=== PATIENT | female | born 1980 | race Caucasian/White ===

== ENCOUNTER 2016-10-07 13:30 | Emergency (ER) | payer BC ==
[2016-10-07 13:52] VITALS: BP 130/70
--- NOTE | 2016-10-07 14:24 | UC ---
Throat Pain/Nasal Crescencio HPI - HPI Summary HPI Summary: Sinus congestion for 3-4 days, no fever, mild sore throat and occaisional nausea from PND. - History of Current Complaint Chief Complaint: UCRespiratory Stated Complaint: SINUS ISSUE Time Seen by Provider: 10/07/16 13:53 Hx Obtained From: Patient Hx Last Menstrual Period: 09/21/16 ?: No Onset/Duration: Sudden Onset, Lasting Days Severity: Moderate Cough: Nonproductive Associated Signs & Symptoms: Positive: Dysphagia, Sinus Discomfort, Nasal Discharge - Epiglottits Risk Factors Epiglottis Risk Factors: Negative - Allergies/Home Medications Allergies/Adverse Reactions: Allergies Allergy/AdvReac Type Severity Reaction Status Date / Time Doxycycline Allergy Severe GI Upset Verified 10/07/16 13:44 Methylprednisolone Allergy Severe ITCHING, Verified 10/07/16 13:44 [From Medrol] FLUSHING Shellfish Allergy Allergy Severe Anaphylatic Verified 10/07/16 13:44 Shock Home Medications: Home Medications Ibuprofen TAB* [Motrin TAB* 600 MG] 600 mg PO Q6H PRN 10/07/16 [History Confirmed 10/07/16] PMH/Surg Hx/FS Hx/Imm Hx Previously Healthy: Yes Endocrine History Of: Denies: Diabetes Cardiovascular History Of: Denies: Hypertension, Pacemaker/ICD GI/ History Of: Denies: Renal Disease - Surgical History Surgical History: Yes Surgery Procedure, Year, and Place: LEEP PROCEDURE 2004. LAPROSCOPIC SURGERY 12/06/2015 FOR ENDOMETRIOSIS - Family History Known Family History: Negative: Cardiac Disease, Hypertension - Social History Alcohol Use: Rare Substance Use Type: None Smoking Status (MU): Never Smoked Tobacco - Immunization History Most Recent Influenza Vaccination: 2016 Most Recent Tetanus Shot: UTD Most Recent Pneumonia Vaccination: N/A Review of Systems Constitutional: Negative Skin: Negative Eyes: Negative ENT: Sore Throat, Ear Ache, Nasal Discharge Respiratory: Negative Cardiovascular: Negative Gastrointestinal: Negative Genitourinary: Negative Motor: Negative Neurovascular: Negative Musculoskeletal: Negative Neurological: Negative Psychological: Negative All Other Systems Reviewed And Are Negative: Yes Physical Exam Triage Information Reviewed: Yes Appearance: Well-Nourished, Ill-Appearing, Pain Distress Vital Signs: Initial Vital Signs Temp 97.2 F 10/07/16 13:46 Pulse 75 10/07/16 13:46 Resp 18 10/07/16 13:46 BP 130/70 04/04/17 13:46 Pulse Ox 99 10/07/16 13:46 Vital Signs Reviewed: Yes Eye Exam: Normal Eyes: Positive: Conjunctiva Clear ENT: Positive: Nasal congestion, Nasal drainage, TM bulging, Other: - bilateral inflammed turbids in nares Dental Exam: Normal Neck exam: Normal Neck: Positive: Supple, Nontender, No Lymphadenopathy Respiratory Exam: Normal Respiratory: Positive: Chest non-tender, Lungs clear, Normal breath sounds Cardiovascular Exam: Normal Cardiovascular: Positive: RRR, No Murmur, Pulses Normal Abdominal Exam: Normal Abdomen Description: Positive: Nontender, No Organomegaly, Soft Bowel Sounds: Positive: Present Musculoskeletal Exam: Normal Musculoskeletal: Positive: Strength Intact, ROM Intact, No Edema Neurological Exam: Normal Neurological: Positive: Alert, Fatigued Psychological Exam: Normal Skin Exam: Normal Throat Pain/Nasal Course/Dx - Course Course Of Treatment: History obrtained, exam performed, meds reviewed, educated on manual sinus drainage, sinus infection vs sinus congestion. symptomatic relief. patient has medrol allergy, advised to try flonase. - Differential Dx/Diagnosis Differential Diagnosis/HQI/PQRI: Influenza, Laryngitis, Otitis Media, Pharyngitis, Sinusitis, URI Provider Diagnoses: maxillary sinus pressure. pharyngitis Discharge - Discharge Plan Condition: Stable Disposition: HOME Patient Education Materials: Rhinosinusitis (ED) Additional Instructions: 1. continue with the NETI pot. 2. Increase fluid intake 3. Steam bath to open sinuses 4. Manual lymph drainage as we talked about. 5. Follow up if you develop a fever, or worsening symptoms.
== END 2016-10-07 14:27 | disposition home or self-care (01) ==
LOC: UCEAST 13:30
DX: R09.81 Nasal congestion (principal); J02.9 Acute pharyngitis, unspecified; Z88.1 Allergy status to other antibiotic agents
CPT/HCPCS: 87502; 99211; G0463

== ENCOUNTER 2017-06-04 16:07 | Emergency (ER) | payer SELFPAY ==
[2017-06-04 16:35] VITALS: BP 116/68
--- NOTE | 2017-06-04 16:45 | UC ---
Knee Pain HPI - HPI Summary HPI Summary: Slipped and fell at work 06/01 pain in right knee - History of Current Complaint Chief Complaint: UCLowerExtremity Stated Complaint: KNEE INJURY Time Seen by Provider: 06/04/17 16:27 Hx Obtained From: Patient Hx Last Menstrual Period: 05/20/17 ?: No Onset/Duration: Sudden Onset, Lasting Days - 3, Still Present Severity Initially: Moderate Severity Currently: Moderate Location Of Injury: right knee Character: Aching Aggravating Factor(s): Weight Bearing - with pain Alleviating Factor(s): Rest, Position Associated Signs And Symptoms: Positive: Swelling, Bruising Able to Bear Weight: Yes - Allergies/Home Medications Allergies/Adverse Reactions: Allergies Allergy/AdvReac Type Severity Reaction Status Date / Time Doxycycline Allergy Severe GI Upset Verified 06/04/17 16:35 Methylprednisolone Allergy Severe ITCHING, Verified 06/04/17 16:35 [From Medrol] FLUSHING Shellfish Allergy Allergy Severe Anaphylatic Verified 06/04/17 16:35 Shock PMH/Surg Hx/FS Hx/Imm Hx Previously Healthy: Yes - Surgical History Surgical History: Yes Surgery Procedure, Year, and Place: LEEP PROCEDURE 2004. LAPROSCOPIC SURGERY 12/06/2015 FOR ENDOMETRIOSIS - Family History Known Family History: Negative: Cardiac Disease, Hypertension - Social History Occupation: Employed Full-time Lives: With Family Alcohol Use: Occasionally Substance Use Type: None Smoking Status (MU): Never Smoked Tobacco - Immunization History Most Recent Influenza Vaccination: 2015 Most Recent Tetanus Shot: UTD Most Recent Pneumonia Vaccination: N/A Review of Systems Constitutional: Negative Skin: Negative Eyes: Negative ENT: Negative Respiratory: Negative Cardiovascular: Negative Gastrointestinal: Negative Genitourinary: Negative Motor: Negative Neurovascular: Negative Musculoskeletal: Arthralgia - right knee Neurological: Negative Psychological: Negative Is Patient Immunocompromised?: No All Other Systems Reviewed And Are Negative: Yes Physical Exam Triage Information Reviewed: Yes Appearance: Well-Appearing, No Pain Distress, Well-Nourished Vital Signs: Initial Vital Signs Temp 98.0 F 06/04/17 16:32 Pulse 75 06/04/17 16:32 Resp 18 06/04/17 16:32 BP 116/68 06/04/17 16:32 Pulse Ox 100 06/04/17 16:32 Vital Signs Reviewed: Yes Eye Exam: Normal Eyes: Positive: Conjunctiva Clear ENT Exam: Normal ENT: Positive: Normal ENT inspection, Hearing grossly normal. Negative: Trismus , Muffled voice, Hoarse voice Dental Exam: Normal Neck exam: Normal Neck: Positive: Supple, Nontender Respiratory Exam: Normal Respiratory: Positive: Chest non-tender, No respiratory distress, No accessory muscle use Cardiovascular Exam: Normal Cardiovascular: Positive: RRR, Brisk Capillary Refill Musculoskeletal Exam: Other Musculoskeletal: Positive: Strength Intact, ROM Intact, Edema @ - right knee Neurological Exam: Normal Neurological: Positive: Alert, Muscle Tone Normal Psychological Exam: Normal Skin Exam: Normal Diagnostics - Radiology No standard instances Xray Interpretation: Positive (See Comments) - arthritis Radiology Interpretation Completed By: Radiologist Knee Pain Course/Dx - Course Course Of Treatment: re wrap, ice, ibuprofen follow with pcp - Differential Dx/Diagnosis Provider Diagnoses: right knee contusion Discharge - Discharge Plan Condition: Stable Disposition: HOME Patient Education Materials: Acetaminophen (By mouth), Contusion in Adults (ED) , Knee Pain (ED), Ice Pack Application (ED) Referrals: Washington Sheriff DO [Primary Care Provider] - If Needed
--- NOTE | 2017-06-04 17:40 | RAD ---
INDICATION: Right knee pain COMPARISON: None TECHNIQUE: AP, lateral, tunnel, and sunrise views were obtained. FINDINGS: There are no acute bony findings. There is minor condylar spurring and there is minor spurring tibial spines. The patellofemoral joint space preserved. There is no joint effusion. IMPRESSION: MINOR OSTEOARTHRITIS
== END 2017-06-04 17:49 | disposition home or self-care (01) ==
LOC: UCEAST 16:07
DX: S80.01XA Contusion of right knee, initial encounter (principal); W01.0XXA Fall on same level from slipping, tripping and stumbling without subsequent striking against object, initial encounter; Y93.9 Activity, unspecified; Y92.89 Other specified places as the place of occurrence of the external cause; Y99.9 Unspecified external cause status; Z72.89 Other problems related to lifestyle
CPT/HCPCS: 84702; 99211; G0463

== ENCOUNTER 2017-08-11 10:02 | Emergency (ER) | payer BC ==
[2017-08-11 12:15] VITALS: BP 122/71
--- NOTE | 2017-08-11 12:39 | UC ---
Neck Pain HPI - HPI Summary HPI Summary: Pt presents with posterior neck pain that began yesterday morning. She tells me that she was towel drying her hair and felt a "pull" in the back of her neck. Still persisting to today. She had some diclofenac at home that she takes for DUB, so she took that and felt mild relief. Denies hx of injury, fever, chills, SOB, chest pain, numbness, or tingling. - History of Current Complaint Chief Complaint: UCUpperExtremity Stated Complaint: NECK PAIN Time Seen by Provider: 08/11/17 12:37 Hx Obtained From: Patient Hx Last Menstrual Period: 1.5 weeks ago ?: No Onset/Duration Of Injury/Symptoms: Days Mechanism Of Injury: No Known Trauma Onset/Duration: Sudden Onset Severity: Moderate Pain Intensity: 7 Pain Scale Used: 0-10 Numeric Character: Aching, Stiff Aggravating Factors: Movement Alleviating Factors: Position - Allergies/Home Medications Allergies/Adverse Reactions: Allergies Allergy/AdvReac Type Severity Reaction Status Date / Time MS Methylprednisolone Allergy Severe ITCHING, Verified 08/11/17 12:15 [From Medrol] FLUSHING MS Shellfish Allergy Allergy Severe Anaphylatic Verified 08/11/17 12:15 [Shellfish Allergy] Shock MS Doxycycline [Doxycycline] AdvReac Severe GI Upset Verified 08/11/17 12:15 Home Medications: Home Medications Acetaminophen [Tylenol] 500 mg PO Q8H PRN 08/11/17 [History Confirmed 08/11/17] Cetirizine* [ZyrTEC 10 MG TAB*] 10 mg PO DAILY PRN 08/11/17 [History Confirmed 08/11/17] Diclofenac Sodium 1 tab PO TID PRN 08/11/17 [History Confirmed 08/11/17] Inositol/X-Rgmzj-Ertsnsmg [Ovasitol Powder Packet] 1 dose PO BID 08/11/17 [ History Confirmed 08/11/17] Ruby 3,6,9 Combination No.7 [Ruby Dha] 1 tab PO DAILY 08/11/17 [History Confirmed 08/11/17] Ondansetron TAB* [Zofran 4 MG Tab*] 4 mg PO TID PRN 08/11/17 [History Confirmed 08/11/17] Pantoprazole Sodium 20 mg PO DAILY 08/11/17 [History Confirmed 08/11/17] Rizatriptan Benzoate [Maxalt [employer]] 10 mg PO DAILY PRN 08/11/17 [History Confirmed 08/11/17] Ubidecarenone [Coq10] 25 mg PO DAILY 08/11/17 [History Confirmed 08/11/17] diphenhydrAMINE HCl [Benadryl Allergy] 50 mg PO DAILY PRN 08/11/17 [History Confirmed 08/11/17] PMH/Surg Hx/FS Hx/Imm Hx Endocrine History: Diabetes Psychological History: Anxiety, Depression - Surgical History Surgical History: Yes Surgery Procedure, Year, and Place: LEEP PROCEDURE 2004. LAPROSCOPIC SURGERY 12/06/2015 FOR ENDOMETRIOSIS - Family History Known Family History: Negative: Cardiac Disease, Hypertension - Social History Occupation: Employed Full-time Lives: With Family Alcohol Use: Occasionally Substance Use Type: None Smoking Status (MU): Never Smoked Tobacco - Immunization History Most Recent Influenza Vaccination: 2015 Most Recent Tetanus Shot: UTD Most Recent Pneumonia Vaccination: N/A Review Of Systems Constitutional: Positive: Negative Skin: Positive: Negative Respiratory: Positive: Negative Cardiovascular: Positive: Negative Musculoskeletal: Positive: Other: - Neck pain Neurological: Positive: Negative Psychological: Positive: Negative All Other Systems Reviewed And Are Negative: Yes Physical Exam Triage Information Reviewed: Yes Appearance: Well-Appearing, No Pain Distress, Obese Vital Signs: Initial Vital Signs Temp 96.9 F 08/11/17 12:11 Pulse 61 08/11/17 12:11 Resp 20 08/11/17 12:11 BP 122/71 08/11/17 12:11 Pulse Ox 98 08/11/17 12:11 Vital Signs Reviewed: Yes Neck: Positive: Supple, No Lymphadenopathy Respiratory: Positive: Lungs clear, Normal breath sounds, No respiratory distress, No accessory muscle use Cardiovascular: Positive: RRR, No Murmur, Pulses Normal Musculoskeletal: Positive: Strength Intact - Neck and B/L shoulder, ROM Intact - Neck and b/l shoulder, No Edema, Other: - TTP over right trapezius and levator. Neurological: Positive: Alert, Other: - Sensations intact C4-T1 b/l. CN II-XII grossly intact Psychological: Positive: Age Appropriate Behavior Skin: Negative: rashes, significant lesion(s) Neck Pain Course/Dx - Course Course Of Treatment: Suspect muscle strain - flexeril at bedtime. Stretches as demonstrated in office today. - Differential Dx/Diagnosis Provider Diagnoses: Neck muscle strain Discharge - Discharge Plan Condition: Stable Disposition: HOME Prescriptions: Cyclobenzaprine TAB* [Flexeril 10 MG TAB*] 10 mg PO BEDTIME PRN #14 tab PRN Reason: Pain Patient Education Materials: Muscle Spasm (ED) Referrals: Washington Sheriff DO [Primary Care Provider] - Additional Instructions: If you develop a fever, shortness of breath, chest pain, new or worsening symptoms - please call your PCP or go to the ED.
== END 2017-08-11 12:55 | disposition home or self-care (01) ==
LOC: UCEAST 10:02
DX: S16.1XXA Strain of muscle, fascia and tendon at neck level, initial encounter (principal); X58.XXXA Exposure to other specified factors, initial encounter; Y93.E8 Activity, other personal hygiene; Y92.009 Unspecified place in unspecified non-institutional (private) residence as the place of occurrence of the external cause; E66.9 Obesity, unspecified; E11.9 Type 2 diabetes mellitus without complications; F41.9 Anxiety disorder, unspecified; F32.9 Major depressive disorder, single episode, unspecified; Z88.8 Allergy status to other drugs, medicaments and biological substances; Z88.1 Allergy status to other antibiotic agents; Z91.013 Allergy to seafood
CPT/HCPCS: 99212; G0463

== ENCOUNTER → 2017-10-07 12:15 | Emergency (ER) | payer BC ==
[~2017-10-07 12:15] MED LIST: Ketorolac INJ* 30 MG/ML 1 ML VIAL IV ONE; Metoclopramide IV* 5 MG/ML 2 ML VIAL IV ONE; NS 0.9% 1000 ML* 1,000 ML IV ONE; diPHENhydraMINE IV* 50 MG/ML 1 ml VIAL (BENADRYL) IV ONE; fentaNYL* 50 MCG/ML 2 ML VIAL (100 MCG VIAL) IV ONE
[2017-10-07 13:22] LABS: ABS Basophils 0.1 10^3/ul (0-0.2); ABS Eosinophils 0.2 10^3/ul (0-0.6); ABS Lymphocytes 1.3 10^3/ul (1.0-4.8); ABS Monocytes 0.3 10^3/ul (0-0.8); ABS Neutrophils 9.4 10^3/ul (1.5-7.7); ABS Nucleated RBC 0 10^3/ul; Eosinophil % 1.5 % (0-6); Hematocrit 39 % (35-47); Lymphocyte % 11.5 % (25-47); Mean Corpuscular HGB Conc 33 g/dl (31-36); Mean Corpuscular Hemoglobin 31 pg (27-31); Mean Corpuscular Volume 93 fL (80-97); Mean Platelet Volume 8.3 um3 (7.4-10.4); Nucleated Red Blood Cells % 0; Platelet Count 344 10^3/ul (150-450); Red Blood Count 4.22 10^6/ul (4.0-5.4); Red Cell Distribution Width 14 % (10.5-15); White Blood Count 11.3 10^3/ul (3.5-10.8)
[2017-10-07 15:10] VITALS: BP 114/73
--- NOTE | 2017-10-09 07:52 | ED ---
Micha Flores Angela, scribed for Christopher Alcantar MD on 10/07/17 at 1244 . Headache - HPI Summary HPI Summary: This pt is a 37 y/o female presenting to [facility] c/o migraine headache x4 days. Pt reports she has a hx of chronic migraine but it has been a long time since she has had a migraine this bad. Pt has taken Maxalt since Thursday (10/03/17) until today with no relief. She additionally notes photophobia. Denies fever, phonophobia, neck stiffness, neck pain. Allergies: solu-medrol. - History Of Current Complaint Chief Complaint: EDHeadache Stated Complaint: MIGRAINE Time Seen by Provider: 10/07/17 12:40 Hx Obtained From: Patient Hx Last Menstrual Period: 1.5 weeks ago Onset/Duration: Started days ago, Still Present Currently Pain Is: Current Pain Scale(0-10)= - 10 Timing: Days Character: Typical Headache Location of Headache: Diffuse Aggravating Factor: Bright Lights Allevating Factors: Nothing Associated Signs And Symptoms: Negative - Allergies/Home Medications Allergies/Adverse Reactions: Allergies Allergy/AdvReac Type Severity Reaction Status Date / Time methylprednisolone Allergy Severe See Comment Verified 10/07/17 12:35 doxycycline Allergy GI Upset Verified 10/07/17 12:35 shellfish derived Allergy Anaphylatic Verified 10/07/17 12:35 Shock PMH/Surg Hx/FS Hx/Imm Hx Endocrine/Hematology History: Reports: Hx Diabetes - PRE DIABETIC - POLYCYSTIC DISEASE Cardiovascular History: Denies: Hx Hypertension, Hx Pacemaker/ICD History: Reports: Other Problems/Disorders - endometriosis Denies: Hx Renal Disease Sensory History: Denies: Hx Hearing Aid Psychiatric History: Denies: Hx Panic Disorder - Surgical History Surgery Procedure, Year, and Place: LEEP PROCEDURE 2004. LAPROSCOPIC SURGERY 12/06/2015 FOR ENDOMETRIOSIS Infectious Disease History: No Infectious Disease History: Denies: Traveled Outside the [place] in Last 30 Days - Family History Known Family History: Positive: Diabetes Negative: Cardiac Disease, Hypertension Family History: Father: prostate CA - Social History Alcohol Use: None Substance Use Type: Reports: None Smoking Status (MU): Never Smoked Tobacco Review of Systems Negative: Fever Positive: Photophobia Negative: Other - phonophobia Cardiovascular: Negative Respiratory: Negative Gastrointestinal: Negative Genitourinary: Negative Negative: Other - neck stiffness, neck pain Positive: Headache All Other Systems Reviewed And Are Negative: Yes Physical Exam - Summary Physical Exam Summary: VITAL SIGNS: Reviewed. GENERAL: Patient is a well-developed and nourished female who is lying comfortable in the stretcher. Patient is not in any acute respiratory distress. HEAD AND FACE: No signs of trauma. No ecchymosis, hematomas or skull depressions. No sinus tenderness. EYES: PERRLA, EOMI x 2, No injected conjunctiva, no nystagmus. There is photophobia. EARS: Hearing grossly intact. Ear canals and tympanic membranes are within normal limits. MOUTH: Oropharynx within normal limits. NECK: Supple, trachea is midline, no adenopathy, no JVD, no carotid bruit, no c- spine tenderness, neck with full ROM. No meningeal signs. CHEST: Symmetric, no tenderness at palpation LUNGS: Clear to auscultation bilaterally. No wheezing or crackles. CVS: Regular rate and rhythm, S1 and S2 present, no murmurs or gallops appreciated. ABDOMEN: Soft, non-tender. No signs of distention. No rebound no guarding, and no masses palpated. Bowel sounds are normal. EXTREMITIES: FROM in all major joints, no edema, no cyanosis or clubbing. NEURO: Alert and oriented x 3. No acute neurological deficits. Speech is normal and follows commands. SKIN: Dry and warm Triage Information Reviewed: Yes Vital Signs On Initial Exam: Initial Vitals Temp Pulse Resp BP Pulse Ox 97.6 F 66 17 132/69 98 10/07/17 12:32 10/07/17 12:32 10/07/17 12:32 10/07/17 12:32 10/07/17 12:32 Vital Signs Reviewed: Yes Diagnostics - Vital Signs Vital Signs Temp Pulse Resp BP Pulse Ox 10/07/17 12:32 97.6 F 66 17 132/69 98 - Laboratory Result Diagrams: 10/07/17 13:05 10/07/17 13:05 Lab Statement: Any lab studies that have been ordered have been reviewed, and results considered in the medical decision making process. Re-Evaluation - Re-Evaluation First Eval Re-Evaluation Time: 15:36 Comment: Pt reports her headache has resolved. Pt will be discharged to home. Headache Course/Dx - Course Assessment/Plan: This pt is a 37 y/o female presenting to [facility] c/o migraine headache x4 days. Pt reports she has a hx of chronic migraine but it has been a long time since she has had a migraine this bad. Pt has taken Maxalt since Thursday (10/03/17) until today with no relief. She additionally notes photophobia. Denies fever, phonophobia, neck stiffness, neck pain. Allergies: solu-medrol. On exam, pt does not have any meningeal signs, neck stiffness, or neck pain. Test results without any significant abnormalities except for WBC of 11.3, glucose of 115. In the ED course the pt was given IV fluids, Toradol, fentanyl, Benadryl, and Reglan. After these medications the pts headache resolved, she reports she is feeling better. Therefore she will be discharged to home with follow up from her PCP. I discussed all the findings and test results with the patient. All questions were answered to patient satisfaction. There were no further complaints or concerns. She is instructed to return to the ED for any worsening or new symptoms. Pt is hemodynamically stable, alert and oriented x3. - Diagnoses Provider Diagnoses: Migraine headache Discharge - Sign-Out/Discharge Documenting (check all that apply): Discharge - discharge to home - Discharge Plan Condition: Stable Disposition: HOME Patient Education Materials: Migraine Headache (ED) Referrals: Washington Sheriff DO [Primary Care Provider] - 3 Days Additional Instructions: Please follow up with your primary care provider. RETURN TO THE ED FOR ANY NEW OR WORSENING SYMPTOMS. The documentation as recorded by the Micha bailey Angela accurately reflects the service I personally performed and the decisions made by me, Christopher Alcantar MD.
== END | disposition home or self-care (01) ==
LOC: ED 12:15
DX: G43.909 Migraine, unspecified, not intractable, without status migrainosus (principal); R73.03 Prediabetes
CPT/HCPCS: 36415; 80053; 82375; 85025; 85652; 96361; 96374; 96375; 99284; J1200; J1885; J2765; J3010

== ENCOUNTER 2018-10-18 18:52 | Inpatient (IN) | payer BC ==
[2018-10-18] MEDS ORDERED: Lactated Ringers 1000 ML Bag* 1,000 ML IV ONE (20:19)
[2018-10-18] MEDS ORDERED: Buffered Lidocaine 1% SYRIN* 1 ML/SYRINGE INTRADERM ONE (20:19)
[2018-10-18] MEDS ORDERED: Misoprostol TAB* 100 MCG PO ONE (20:48)
[2018-10-18] MEDS ORDERED: Insulin NPH(*) 1 UNITS UNIT SUBCUT SCH (21:00)
[2018-10-18] MEDS ORDERED: Lactated Ringers 1000 ML Bag* 1,000 ML IV SCH (21:00)
[2018-10-18] MEDS ORDERED: Ampicillin ADVAN(*) 2 GM in NS 0.9% 100 ML* 100 ML IVPB SCH (21:00)
--- NOTE | 2018-10-18 21:17 | HP ---
General Information - Reason for Visit PPROM at 35 + weeks. pt with a sudden gush of fluid and continuous leaking since 1729 this pm. GFM / no contractions - General Information Estimated Due Date: 11/18/18 Determined By: iui Maternal Blood Type and Rh: B Positive - Results this Serology/RPR Result: Non-Reactive Rubella Result: Non-Immune HBsAg Result: Negative HIV Result: Negative Past Medical History Pertinent Past Medical History: See Records Past Medical History Comment: Hypothyroid/ pcos/ gdm/ infertilty Pertinent Past Surgical History: See Records - lapaarcoscopy endometriosis/ LEEP/ colposcopy Review of Systems Constitutional: Comfortable Gastrointestinal: No Nausea/Vomiting Genitourinary: Leaking Fluid, No Bleeding Musculoskeletal: No Complaint Neurological: No Headache Movement: Normal Exam Allergies/Adverse Reactions: Allergies shellfish derived Allergy (Severe, Verified 04/14/18 10:37) Anaphylatic Shock methylprednisolone Allergy (Intermediate, Verified 04/14/18 10:37) Itching, flushing ITCHING, FLUSHING doxycycline Adverse Reaction (Intermediate, Verified 04/14/18 10:37) GI Upset Lab Values - Entire Visit: Laboratory Tests 10/18/18 19:12 Vag Amniotic Fld Detect Positive - Exam Breast: Breast Exam Deferred Extremities: Edema - +1 Heart: Normal Rhythm/Heart Sounds HEENT: No Significant Findings Lungs: Clear Bilaterally Targeted Exam Findings Cervical Exam: Closed Effacement: 50% Station: -3 Presenting Part: Vertex Membrane Status: Leaking Amniotic Fluid Evaluation: Positive ROM Plus EFM Findings - External Monitor Findings Baseline Heart Rate: 130 External Monitor Findings: Accelerations Present, Variability Moderate Contractions: Irregular Assessment/Plan - Obstetrical Risk Factors Obstetrical Risk Factors: GBS Unknown, , Obesity, Assisted Reproduction, Gestational Diabetes - Plan Plan: Cervical Ripening, Antibiotic Prophylaxis - 35 + week with srom,/ disciussed pros and cons of expedited delivery vs expectant and use of steroids/ She understands decrease risk of RDS. ptaware of adverse effect on glucose control. would like to induce leoncio and decrease risk of chorioamnionitis. will start ampicilin and misoprostol for induction
[2018-10-18 21:38] LABS: Hematocrit 34 % (33-41); Hemoglobin 11.2 g/dL (12.0-16.0); Mean Corpuscular HGB Conc 33 g/dL (31-36); Mean Corpuscular Hemoglobin 31 pg (27-31); Mean Corpuscular Volume 91 fL (80-97); Mean Platelet Volume 9.4 fL (7.4-10.4); Platelet Count 241 10^3/uL (150-450); Red Blood Count 3.67 10^6 /uL (3.70-4.87); Red Cell Distribution Width 14 % (10.5-15); White Blood Count 12.4 10^3/uL (3.5-10.8)
[2018-10-18 21:41] LABS: ABS Basophils 0 10^3/ul (0-0.2); ABS Eosinophils 0.1 10^3/ul (0-0.6); ABS Lymphocytes 1.7 10^3/ul (1.0-4.8); ABS Monocytes 0.4 10^3/ul (0-0.8); ABS Nucleated RBC 0 10^3/ul; Eosinophil % 0.7 %; Lymphocyte % 13.8 %; Nucleated Red Blood Cells % 0
[2018-10-18] MEDS: metFORMIN* 500 MG TAB PO SCH (22:06)
[2018-10-18] MEDS ORDERED: hydrOXYzine HCL TAB* 50 MG PO ONE (23:30)
[2018-10-19] MEDS ORDERED: Misoprostol TAB* 100 MCG PO ONE (01:34)
[2018-10-19] MEDS ORDERED: Oxytocin in LR* 20 UNITS/1,000 ML BAG IVPB ONE (02:38)
[2018-10-19] MEDS ORDERED: Dibucaine 1% 28.35 GM TUBE PR PRN (03:14)
[2018-10-19] MEDS ORDERED: Glycerin ADULT SUPP PR PRN (03:14)
[2018-10-19] MEDS ORDERED: Witch Hazel PAD* JAR TOPICAL PRN (03:14)
[2018-10-19] MEDS ORDERED: Acetaminophen TAB* 325 MG PO PRN (03:14)
--- NOTE | 2018-10-19 03:21 | PN ---
Progress Note - Progress Note Date of Service: 10/19/18 Note: addendum on plan pt and decided on expidited delivery and no use of betamethasone.
--- NOTE | 2018-10-19 03:24 | PROCNOTE ---
[facility] OB: Delivery Note - Delivery A Date of : 10/19/18 Time of : 02:34 [place] Weight at : 6 lb 13 oz Score 1 Minute: 8 Score 5 Minutes: 8 Gestational Age in Weeks and Days at Delivery: 35 Weeks and 5 Days Delivery Method: Spontaneous Vaginal Labor: Induced Did Patient attempt ?: N/A, No Previous Amniotic Fluid: Clear Estimated Blood Loss: 300 Anesthesia/Analgesia: None Delivered By: Alen Santos Perineum Perineal Injury: 2nd Degree Perineal Injury Comment: mild repair with 3-0 vicryl Perineal Repair: By Delivering Practioner - Events Delivery Events of Note: Precipitous Delivery - Additional Delivery Notes Additional Delivery Notes: baby initially with good cry and tone . some poor color and pulse oximetry applied . slow improvemnt of pulse oximetry with cpap. amando cannula with pulse oximetry in the low 90's with 30% o2/ baby to nicu and dr lao called
[2018-10-19] MEDS ORDERED: Ibuprofen TAB* 600 MG ONE (03:25)
[2018-10-19] MEDS: Ibuprofen TAB* 600 MG PO PRN ×3 (03:26→20:55)
[2018-10-19] MEDS ORDERED: Oxytocin in LR* 20 UNITS/1,000 ML BAG IVPB SCH (04:00)
[2018-10-19] MEDS ORDERED: Lactated Ringers 1000 ML Bag* 1,000 ML IV SCH (04:00)
[2018-10-19] MEDS: Levothyroxine TAB* 25 MCG TAB PO SCH (06:59)
[2018-10-19] MEDS ORDERED: Simethicone TAB* 80 MG TAB.CHEW PO SCH (08:30)
[2018-10-19] MEDS: Docusate CAP* 100 MG PO SCH ×3 (09:45→20:55)
[2018-10-19] MEDS: metFORMIN* 500 MG TAB PO SCH ×2 (10:02→20:55)
--- NOTE | 2018-10-19 10:16 | PTEDU ---
Patient Name: CLAUDIA WALDEN CLAUDIA WALDEN selected video: Never Ever Shake a Baby to view on 10/19/2018 at 10:15:22 AM [id number]
[2018-10-20] MEDS: Levothyroxine TAB* 25 MCG TAB PO SCH (06:19)
[2018-10-20 09:11] LABS: ABS Basophils 0.1 10^3/ul (0-0.2); ABS Eosinophils 0.2 10^3/ul (0-0.6); ABS Lymphocytes 1.9 10^3/ul (1.0-4.8); ABS Monocytes 0.5 10^3/ul (0-0.8); ABS Neutrophils 11.8 10^3/ul (1.5-7.7); ABS Nucleated RBC 0 10^3/ul; Eosinophil % 1.6 %; Hematocrit 32 % (33-41); Hemoglobin 10.7 g/dL (12.0-16.0); Lymphocyte % 13.2 %; Mean Corpuscular HGB Conc 34 g/dL (31-36); Mean Corpuscular Hemoglobin 31 pg (27-31); Mean Corpuscular Volume 93 fL (80-97); Nucleated Red Blood Cells % 0.1; Platelet Count 251 10^3/uL (150-450); Red Blood Count 3.42 10^6 /uL (3.70-4.87); Red Cell Distribution Width 14 % (10.5-15); White Blood Count 14.5 10^3/uL (3.5-10.8)
[2018-10-20] MEDS: Docusate CAP* 100 MG PO SCH ×3 (09:13→21:09)
[2018-10-20] MEDS: metFORMIN* 500 MG TAB PO SCH ×2 (09:14→21:09)
[2018-10-20] MEDS: Ibuprofen TAB* 600 MG PO PRN ×2 (09:14→19:45)
[2018-10-20] MEDS ORDERED: Measles, Mumps,Rubella VACC* 0.5 ML/VIAL SUBCUT ONE (14:23)
[2018-10-21] MEDS: Levothyroxine TAB* 25 MCG TAB PO SCH (06:20)
[2018-10-21] MEDS: Ferrous Gluconate TAB* 324 MG TAB PO SCH (07:34)
[2018-10-21] MEDS: metFORMIN* 500 MG TAB PO SCH (08:40)
[2018-10-21] MEDS: Ibuprofen TAB* 600 MG PO PRN (08:41)
[2018-10-21] MEDS: Docusate CAP* 100 MG PO SCH (08:41)
[2018-10-21 09:00] VITALS: BP 126/59
== END 2018-10-21 12:05 | disposition home or self-care (01) | DRG 560 ==
LOC: MCHOBOUT 18:52 → MCHOB 20:05
PROVIDERS: ADMIT Obstetrics & Gynecology; ATTEND Obstetrics & Gynecology
PROC: 10E0XZZ Delivery of Products of Conception, External Approach (ICD-10-PCS; principal; 2018-10-19)
PROC: 4A1HXCZ Monitoring of Products of Conception, Cardiac Rate, External Approach (ICD-10-PCS; 2018-10-19)
PROC: 0KQM0ZZ Repair Perineum Muscle, Open Approach (ICD-10-PCS; 2018-10-19)
DX: O42.013 Preterm premature rupture of membranes, onset of labor within 24 hours of rupture, third trimester (principal); O60.14X0 Preterm labor third trimester with preterm delivery third trimester, not applicable or unspecified; Z37.0 Single live birth; Z3A.35 35 weeks gestation of pregnancy; O99.214 Obesity complicating childbirth; E66.01 Morbid (severe) obesity due to excess calories; O24.425 Gestational diabetes mellitus in childbirth, controlled by oral hypoglycemic drugs; O99.284 Endocrine, nutritional and metabolic diseases complicating childbirth; E03.9 Hypothyroidism, unspecified; O70.1 Second degree perineal laceration during delivery; O62.3 Precipitate labor; E28.2 Polycystic ovarian syndrome; Z88.8 Allergy status to other drugs, medicaments and biological substances; Z88.1 Allergy status to other antibiotic agents; Z91.013 Allergy to seafood
CPT/HCPCS: 36415; 84112; 85025; 86850; 86900; 86901; 87070; 90707; A9270-GY; S0191

== ENCOUNTER 2019-06-12 13:51 | Emergency (ER) | payer BC ==
[2019-06-12 14:04] VITALS: BP 138/82
[2019-06-12 14:31] LABS: Influenza A Molecular NEGATIVE (Negative); Influenza B Molecular NEGATIVE (Negative)
--- NOTE | 2019-06-12 14:46 | UC ---
FLU HPI - HPI Summary HPI Summary: 38-year-old female presents with onset of fever, general malaise, fatigue, body aches, nasal congestion, runny nose, sore throat, and occasional productive cough. Denies ear pain, dysphagia, chest pain, shortness of breath, abdominal pain, nausea, vomiting, or diarrhea. - History of Current Complaint Chief Complaint: UCGeneralIllness Stated Complaint: FEVER, COUGH, ACHES Time Seen by Provider: 06/12/19 14:39 Hx Obtained From: Patient Hx Last Menstrual Period: irregular Pain Intensity: 6 - Allergy/Home Medications Allergies/Adverse Reactions: Allergies Allergy/AdvReac Type Severity Reaction Status Date / Time shellfish derived Allergy Severe Anaphylatic Verified 06/12/19 14:04 Shock methylprednisolone Allergy Intermediate Itching, Verified 06/12/19 14:04 flushing doxycycline AdvReac Intermediate GI Upset Verified 06/12/19 14:04 Home Medications: Home Medications Cetirizine* [ZyrTEC 10 MG TAB*] 10 mg PO DAILY 06/12/19 [History Confirmed 06/12] DULoxetine DR CAP* [Cymbalta CAP*] 60 mg PO DAILY 06/12/19 [History Confirmed ] Norethindrone 0.35 mg PO DAILY WITH MEAL 06/12/19 [History Confirmed 06/12/19] PMH/Surg Hx/FS Hx/Imm Hx Endocrine History: Diabetes GI/ History: Gastroesophageal Reflux Psychological History: Depression - Surgical History Surgical History: Yes Surgery Procedure, Year, and Place: LEEP PROCEDURE 2004. LAPROSCOPIC SURGERY 12/06/2015 FOR ENDOMETRIOSIS - Family History Known Family History: Positive: Diabetes Negative: Cardiac Disease, Hypertension Family History: Father: prostate CA - Social History Occupation: Employed Full-time Lives: With Family Alcohol Use: Occasionally Substance Use Type: None Smoking Status (MU): Never Smoked Tobacco Have You Smoked in the Last Year: Yes - Immunization History Most Recent Influenza Vaccination: 2018 Most Recent Tetanus Shot: UTD Most Recent Pneumonia Vaccination: N/A Review of Systems All Other Systems Reviewed And Are Negative: Yes Constitutional: Positive: Fever, Chills, Fatigue Eyes: Negative: Drainage, Eye Redness ENT: Positive: Sore Throat, Nasal Discharge, Sinus Congestion, Sinus Pain/ Tenderness. Negative: Ear Ache Respiratory: Positive: Cough. Negative: Shortness Of Breath Cardiovascular: Negative: Palpitations, Chest Pain Gastrointestinal: Negative: Abdominal Pain, Vomiting, Diarrhea, Nausea Genitourinary: Positive: Negative Musculoskeletal: Positive: Myalgia Neurological: Positive: Negative Is Patient Immunocompromised?: No Physical Exam - Summary Physical Exam Summary: GENERAL APPEARANCE: Alert and cooperative obese adult female who appears to be in no acute distress. EYES: Conjunctiva clear. No drainage. EARS: External auditory canals and tympanic membranes clear, hearing grossly intact. NOSE: Moderate nasal congestion. No nasal discharge. THROAT: Mild pharyngeal erythema. No tonsilar inflammation, swelling, exudate, or lesions. Uvula midline. NECK: Neck supple, non-tender without lymphadenopathy. CARDIAC: Normal S1 and S2. No S3, S4 or murmurs. Rhythm is regular. There is no peripheral edema, cyanosis or pallor. Extremities are warm and well perfused. Capillary refill is less than 2 seconds. Peripheral pulses intact. LUNGS: Clear to auscultation without rales, rhonchi, wheezing or diminished breath sounds. Dry, non-productive cough. ABDOMEN: Positive bowel sounds. Soft, nondistended, nontender. No guarding or rebound. No masses or hepatosplenomegally. MUSKULOSKELETAL: ROM intact to all extremities. No joint erythema or tenderness. Normal muscular development. Normal gait. SKIN: Skin normal color, texture and turgor with no lesions or eruptions. Triage Information Reviewed: Yes Vital Signs: Initial Vital Signs Temp 98.5 F 06/12/19 14:01 Pulse 92 06/12/19 14:01 Resp 19 06/12/19 14:01 BP 138/82 06/12/19 14:01 Pulse Ox 100 06/12/19 14:01 Vital Signs Reviewed: Yes Flu Course/Dx - Course Course Of Treatment: 38-year-old female presents with onset of fever, general malaise, fatigue, body aches, nasal congestion, runny nose, sore throat, and occasional productive cough. Denies ear pain, dysphagia, chest pain, shortness of breath, abdominal pain, nausea, vomiting, or diarrhea. Afebrile. Vital signs stable. Patient and minor nasal congestion, pharyngeal erythema, no tonsillar swelling or exudate, no cervical lymphadenopathy, clear bilateral breath sounds, try nonproductive cough, otherwise unremarkable exam. Rapid flu test was negative. Recommending symptomatic treatment for a viral upper respiratory infection. She is to follow-up with her primary care provider in 5-7 days if symptoms are not improving. Symmetric in the morning, as reviewed with the patient. Verbalized understanding and agrees with plan of care. - Differential Dx/Diagnosis Differential Diagnosis/HQI/PQRI: Influenza, Upper Respiratory Infection, Other - Sinusitits Provider Diagnosis: Viral URI Discharge ED - Sign-Out/Discharge Documenting (check all that apply): Patient Departure All imaging exams completed and their final reports reviewed: No Studies - Discharge Plan Condition: Stable Disposition: HOME Patient Education Materials: Upper Respiratory Infection (ED) Forms: *Work Release Referrals: Washington Sheriff DO [Primary Care Provider] - 5 Days Additional Instructions: The rapid flu test performed in the clinic today was negative. Your history and exam are consistent with a viral upper respiratory infection. Viral infections do not respond to antibiotics and are limited to the treatment of symptoms. Viral infections typically run their course in 7-10 days. Drink plenty of fluids to avoid dehydration especially if you are running any fever. Use a saline rinse kit such as Neti Pot or NeilMed at least twice a day to help thin secretions and promote drainage of the sinuses. Use fluticasone (Flonase) nasal spray 2 sprays each nostril once daily. Use on over the counter decongestant such as Sudafed for the congestion and sinus pressure. Take over the counter acetaminophen (Tylenol) or ibuprofen (Advil, Motrin) according to directions as needed for pain or fever. Use salt water gargles several times a day if you have a sore throat. You may also use Chloraseptic spray or Cepacol lonzenges according to directions which contain a numbing medication and can provide some temporary relief from your sore throat. Follow up with your primary care provider in 5-7 days if symptoms persist. Seek immediate medical attention in the emergency room if you have fever greater than 100.5 F despite taking acetaminophen or ibuprofen, have chest pain , difficulty breathing, are unable to swallow, or have any worsening of symptoms. - Billing Disposition and Condition Condition: STABLE Disposition: Home
== END 2019-06-12 15:26 | disposition home or self-care (01) ==
LOC: UCEAST 13:51
DX: J06.9 Acute upper respiratory infection, unspecified (principal); R53.81 Other malaise; E11.9 Type 2 diabetes mellitus without complications; Z91.013 Allergy to seafood; Z88.8 Allergy status to other drugs, medicaments and biological substances; Z88.1 Allergy status to other antibiotic agents
CPT/HCPCS: 99211; G0463